=== PATIENT | male | born 1980 | race African-American/Black ===

== ENCOUNTER 2016-08-27 12:03 | Emergency (ER) | payer MEDICAID, OTHER ==
[~2016-08-27] VITALS: Ht 175.3 cm; Wt 125.6 kg
[~2016-08-27 12:03] MED LIST: AMOXICILLIN500 MG ORAL; ATROVENT 0.03%30 M1 NASAL; AZOR 10-20 MG1 EACH ORAL; BACTRIM DS TAB1 EAC1 ORAL; BENADRYL25 MG ORAL; CLOTRIMAZOLE15 GM TOPIC; COLACE100 MG ORAL; HYDROCORTISONE TP; IBUPROFEN600 MG ORAL; KEFLEX500 MG ORAL; LOSARTAN POTASS25 MG ORAL; NAPROXEN SODIU550 M1 ORAL; NKM; NORCO 5-325 TA1 EACH ORAL; PROAIR HFA8.5 GM INH; PROMETHAZINE V237 ML ORAL; TRIAMCINOLONE A60 ML TP; VALIUM5 MG ORAL
[2016-08-27] MEDS ORDERED: CORTISPORIN EAR10 ML LEFT EAR (12:23)
--- NOTE | 2016-08-27 12:31 | Emergency Room Report ---
History of Present Illness General Chief Complaint: Earache Present Illness HPI The patient is a 36-year-old male presenting with left ear pain which began one week prior. The patient states the pain is described as a 10 of 10 dull ache and does not radiate from the ear. The pain is worse with jaw movement. The patient does admit to using Q-tips daily. The patient denies any drainage from the ear and denies any changes in hearing, N, V, F, chills, CORNELIUS, changes in vision, sore throat Allergies: Coded Allergies: No Known Allergies (Unverified , 02/05/14) Patient History Past Medical History: see triage record Pertinent Family History: none Reviewed Nursing Documentation: PMH: Agreed, PSxH: Agreed Nursing Documentation-PMH Hx Cardiac Problems: No Hx Hypertension: Yes Hx Pacemaker: No Hx Asthma: No Hx COPD: No Hx Diabetes: No Hx Cancer: No Hx Gastrointestinal Problems: Yes - ANAL FISSURE Hx Dialysis: No Hx Neurological Problems: No Hx Cerebrovascular Accident: No Hx Seizures: No Review of Systems All Other Systems: negative except mentioned in HPI Physical Exam Vital Signs Date Time Temp Pulse Resp B/P Pulse Ox O2 Delivery O2 Flow Rate FiO2 08/27/16 12:07 98.1 67 20 131/77 98 Room Air Sp02 EP Interpretation: reviewed, normal General Appearance: no apparent distress, alert, GCS 15, non-toxic Head: normocephalic, atraumatic Eyes: bilateral eye PERRL, bilateral eye normal inspection ENT: uvula midline, moist mucus membranes, other - L ear: EAC is erythematous. TTP with pressure over tragus. TM intact. No bulging Neck: full range of motion, supple/symm/no masses Respiratory: chest non-tender, lungs clear, normal breath sounds, no wheezing, speaking full sentences Cardiovascular #1: regular rate, rhythm, no edema Musculoskeletal: back normal, gait/station normal, normal range of motion, non- tender Neurologic: alert, oriented x3, responsive, motor strength/tone normal, sensory intact, speech normal Psychiatric: judgement/insight normal, memory normal, mood/affect normal, no suicidal/homicidal ideation Skin: normal color, no rash, warm/dry, well hydrated Medical Decision Making PA Attestation Dr. Roy is my supervising physician. Patient management was discussed with my supervising physician Diagnostic Impression: Primary Impression: Otitis externa of left ear ER Course The patient is a 36-year-old male presenting with left ear pain which began one week prior. Differential diagnosis include but not limited to otitis externa, otitis media, mastoiditis, sinusitis, pharyngitis PE: vitals WNL. NAD. L ear: EAC is erythematous. TTP with pressure over tragus. TM intact. No bulging Otherwise exam unremarkable. The history and physical exam is consistent with otitis externa. The patient will be discharged with a prescription for Cortisporin. ER precautions are given and the patient is advised to not insert anything into the ears. Last Vital Signs Date Time Temp Pulse Resp B/P Pulse Ox O2 Delivery O2 Flow Rate FiO2 08/27/16 12:07 98.1 67 20 131/77 98 Room Air Status: improved Disposition: HOME, SELF-CARE Condition: Improved Scripts Neomycin/Polymyxin B Sulf/Hc* (CORTISPORIN EAR SOLUTION*) 10 Ml Solution 4 DROP LEFT EAR QID, #10 ML 0 Refills Prov: DIONTE VALERA 08/27/16 Patient Instructions: Otitis Externa Additional Instructions: I discussed my findings with the patient. All questions and concerns have been answered. Treatment and medication compliance have been addressed. I advised the patient that they need to follow up with PMD in 3-5 days. Return to ED if symptoms worsen, new symptoms arise, or if needed for any reason. Patient verbalized understanding of discharge instructions. DIONTE VALERA Aug 27, 2016 12:31
[2016-08-27 12:33] VITALS: BP 130/70
== END 2016-08-27 12:40 | disposition home or self-care (01) ==
LOC: EMR 12:33
DX: H60.92 Unspecified otitis externa, left ear (principal); I10 Essential (primary) hypertension
CPT/HCPCS: 99282

== ENCOUNTER 2016-10-02 12:25 | Emergency (ER) | payer OTHER ==
[~2016-10-02] VITALS: Ht 175.3 cm; Wt 117.9 kg
[~2016-10-02 12:25] MED LIST changes: +CORTISPORIN EAR10 ML LEFT EAR
[2016-10-02 12:31] VITALS: BP 142/85
[2016-10-02] MEDS ORDERED: LORATADINE10 M1 PO (12:33)
[2016-10-02] MEDS ORDERED: KEPPRA500 M4 ORAL (12:33)
[2016-10-02] MEDS ORDERED: Ketorolac 60mg Inj IM ONE (13:00)
--- NOTE | 2016-10-02 13:00 | Emergency Room Report ---
History of Present Illness General Chief Complaint: Lower Back Pain or Injury Present Illness HPI 36 YO male presents to the ED c/o low back pain radiating across the low back x 1 week s/p playing basket ball after long period of sedentary lifestyle. pt. denies incontinence, denies hx of neoplastic disease. no trauma or fall. no recent spinal procedures. Pt. describes 10/10 cramping low back pain worse at night or with specific movements. pt. states he feels as though his back is " knotted up. "Denies nausea vomiting fevers or chills. Not abdominal pain, hematuria, dysuria, chest pain or shortness of breath . Denies numbness tingling or loss of sensation or gross motor movements of the extremities, incontinence of bowel or bladder. Denies CP, Palpitations, LOC, AMS, dizziness, Changes in Vision, Sensation, paresthesias, or a sudden severe headache. Allergies: Coded Allergies: No Known Allergies (Unverified , 02/05/14) Patient History Past Medical History: see triage record Past Surgical History: none Pertinent Family History: none Immunizations: UTD Reviewed Nursing Documentation: PMH: Agreed, PSxH: Agreed Nursing Documentation-PMH Hx Cardiac Problems: No Hx Hypertension: Yes Hx Pacemaker: No Hx Asthma: No Hx COPD: No Hx Diabetes: No Hx Cancer: No Hx Gastrointestinal Problems: Yes - ANAL FISSURE Hx Dialysis: No Hx Neurological Problems: No Hx Cerebrovascular Accident: No Hx Seizures: Yes Review of Systems All Other Systems: negative except mentioned in HPI Physical Exam Vital Signs Date Time Temp Pulse Resp B/P Pulse Ox O2 Delivery O2 Flow Rate FiO2 10/02/16 12:28 98.4 55 16 142/85 99 Room Air Sp02 EP Interpretation: reviewed, normal General Appearance: no apparent distress, alert, GCS 15, non-toxic Head: normocephalic, atraumatic Eyes: bilateral eye PERRL, bilateral eye normal inspection ENT: hearing grossly normal, normal pharynx, no angioedema, normal voice Neck: full range of motion, supple/symm/no masses Respiratory: chest non-tender, lungs clear, normal breath sounds, speaking full sentences Cardiovascular #1: regular rate, rhythm, no edema Cardiovascular #2: 0 carotid (R), 0 carotid (L), 0 radial (R), 0 radial (L), 0 femoral (R), 0 femoral (L), 0 dorsalis pedis (R), 0 dorsalis pedis (L) Gastrointestinal: non tender, soft, no guarding, no rebound Rectal: deferred Genitourinary: normal inspection, no CVA tenderness Musculoskeletal: back normal, gait/station normal, normal range of motion, no calf tenderness, tender - Lateral paraspinous TTP majority on the left paraspinal muscles, no midline TTP or obvious deformity. Neurologic: alert, oriented x3, responsive, motor strength/tone normal, sensory intact, cerebellar normal, normal gait, speech normal, other - no incontinence Psychiatric: judgement/insight normal, memory normal, mood/affect normal, no suicidal/homicidal ideation Skin: normal color, no rash, warm/dry, well hydrated Lymphatic: no adenopathy Medical Decision Making PA Attestation Dr. Garber is my supervising Physician whom patient management has been discussed with. Diagnostic Impression: Primary Impression: Muscle spasm of back Additional Impression: Muscle strain ER Course Pt. presents to the ED c/o low back pain radiating across the low back x 1 week s/p playing basket ball after long period of sedentary lifestyle. pt. denies incontinence, denies hx of neoplastic disease. no trauma or fall. no recent spinal procedures. Pt. describes 10/10 cramping low back pain worse at night or with specific movements. pt. states he feels as though his back is " knotted up. " Ddx considered but are not limited to Fracture, dislocation, contusion, epidural abscess, Sprain/Strain/Spasm Vital signs: are WNL, pt. is afebrile H&PE are most consistent with muscle spasm ORDERS: none required at this time. ED INTERVENTIONS: -60mg Toradol -350mg Soma PO -I reviewed this pt. CURES report for which there is no hx of active or previous rx's. DISCHARGE: At this time pt. is stable for d/c to home. Will provide printed patient care instructions, and any necessary prescriptions. Care plan and follow up instructions have been discussed with the patient prior to discharge. Last Vital Signs Date Time Temp Pulse Resp B/P Pulse Ox O2 Delivery O2 Flow Rate FiO2 10/02/16 12:31 98.4 55 16 142/85 99 Room Air Disposition: HOME, SELF-CARE Condition: Stable Scripts Cyclobenzaprine Hcl* (FLEXERIL*) 10 Mg Tablet 10 MG ORAL THREE TIMES A DAY, #21 TAB Prov: Latia Shirley 10/02/16 Ibuprofen* (MOTRIN*) 600 Mg Tablet 600 MG ORAL THREE TIMES A DAY, #30 TAB 0 Refills Prov: Latia Shirley 10/02/16 Patient Instructions: Back Pain, Adult, Muscle Cramps and Spasms, [id number] Additional Instructions: Take medications as directed. Follow up with PCP in 3-5 days Return sooner to ED if new symptoms occur, or current symptoms become worse. Do not drink alcohol, drive, or operate heavy machinery while taking Muscle Relaxer as this may cause drowsiness. - Please note that this Emergency Department Report was dictated using [employer] remover technology software, occasionally this can lead to erroneous entry secondary to interpretation by the dictation equipment. Latia Shirley Oct 02, 2016 13:00
[2016-10-02] MEDS ORDERED: CYCLOBENZAPRINE10 MG ORAL (13:03)
[2016-10-02] MEDS ORDERED: IBUPROFEN600 MG ORAL (13:03)
[2016-10-02 13:51] VITALS: BP 113/63
== END 2016-10-02 13:53 | disposition home or self-care (01) ==
LOC: EMR 12:30
DX: S39.012A Strain of muscle, fascia and tendon of lower back, initial encounter (principal); X50.0XXA Overexertion from strenuous movement or load, initial encounter; Y93.67 Activity, basketball; Y92.9 Unspecified place or not applicable
CPT/HCPCS: 96372